=== PATIENT | female | born 1970 | race Caucasian/White ===

== ENCOUNTER 2016-11-13 10:07 | Observation (INO) | payer BC, OTHER ==
[2016-11-13] MEDS ORDERED: ONDANSETRON 4 MG TAB.RAPDIS PO ONE (10:30)
[2016-11-13] MEDS ORDERED: OXYCODONE-ACETAMINOPHEN 5-325 MG TABLET PO ONE (10:30)
[2016-11-13] MEDS ORDERED: NORMAL SALINE 1000 ML 1,000 ML IV ONE (10:31)
--- NOTE | 2016-11-13 10:32 | ER Document Report ---
ED Medical Screen (RME) - General Chief Complaint: Abdominal Pain Stated Complaint: CHEST/SIDE DISCOMFORT Time Seen by Provider: 11/13/16 10:28 Mode of Arrival: Ambulatory Information source: Patient Notes: 46-year-old female presents to ED for right-sided upper abdominal pain right flank pain and lower chest pain. She has a history of chronic constipation but had a last bowel movement yesterday she said the pain started yesterday with stool sometimes cramping sometimes sharp with nausea worse after eating. History is of bilateral tubal ligation.. I have greeted and performed a rapid initial assessment of this patient. A comprehensive ED assessment and evaluation of the patient, analysis of test results and completion of medical decision making process will be conducted by an additional ED providers. TRAVEL OUTSIDE OF THE [place] IN LAST 30 DAYS: No - Related Data Allergies/Adverse Reactions: Sulfa (Sulfonamide Antibiotics) Allergy (Verified 11/13/16 10:12) Past Medical History Renal/ Medical History: Denies: Hx Peritoneal Dialysis Physical Exam - Vital signs Vitals: Temp Pulse Resp BP Pulse Ox 97.4 F 68 21 H 119/84 98 11/13/16 10:12 11/13/16 10:12 11/13/16 10:12 11/13/16 10:12 11/13/16 10:12 Course - Vital Signs Vital signs: Temp Pulse Resp BP Pulse Ox 97.4 F 68 21 H 119/84 98 11/13/16 10:12 11/13/16 10:12 11/13/16 10:12 11/13/16 10:12 11/13/16 10:12
[2016-11-13 11:32] LABS: ABSOLUTE LYMPHOCYTES (AUTO) 1.8 10^3/uL (0.5-4.7); ABSOLUTE MONOCYTES (AUTO) 0.5 10^3/uL (0.1-1.4); ABSOLUTE NEUT (AUTO) 1.5 10^3/uL (1.7-8.2); BASOPHILS % (AUTO) 0.4 % (0-2); HEMATOCRIT 39.1 % (36.0-47.0); HEMOGLOBIN 12.9 g/dL (12.0-15.5); HGB HCT DIFFERENCE -0.4; LYMPHOCYTES % (AUTO) 46.9 % (13-45); MEAN CORPUSCULAR HEMOGLOBIN 30.1 pg (27.0-33.4); MEAN CORPUSCULAR VOLUME 91 fl (80-97); MONOCYTES % (AUTO) 12.6 % (3-13); RED BLOOD COUNT 4.28 10^6/uL (3.72-5.28); RED CELL DISTRIBUTION WIDTH 13.3 % (11.5-14.0); SEGMENTED NEUTROPHILS % (AUTO) 40.1 % (42-78); WHITE BLOOD COUNT 3.8 10^3/uL (4.0-10.5)
--- NOTE | 2016-11-13 11:37 | RADIOLOGY REPORT (SQ) ---
EXAM DESCRIPTION: CHEST PA/LAT COMPLETED DATE/TIME: 11/13/2016 11:21 am REASON FOR STUDY: right upper quad and chest pain COMPARISON: None. EXAM PARAMETERS: NUMBER OF VIEWS: two views TECHNIQUE: Digital Frontal and Lateral radiographic views of the chest acquired. RADIATION DOSE: NA LIMITATIONS: none FINDINGS: LUNGS AND PLEURA: No opacities, masses or pneumothorax. No pleural effusion. MEDIASTINUM AND HILAR STRUCTURES: No masses or contour abnormalities. HEART AND VASCULAR STRUCTURES: Heart normal size. No evidence for failure. BONES: No acute findings. HARDWARE: None in the chest. OTHER: No other significant finding. IMPRESSION: NO SIGNIFICANT RADIOGRAPHIC FINDING IN THE CHEST. TECHNICAL DOCUMENTATION: JOB ID: [id number] [employer]- All Rights Reserved
[2016-11-13 11:46] LABS: APPEARANCE,URINE CLEAR; BILIRUBIN,URINE NEGATIVE (NEGATIVE); GLUCOSE, URINE NEGATIVE (NEGATIVE); KETONES,URINE NEGATIVE (NEGATIVE); LEUKOCYTE ESTERASE,URINE NEGATIVE (NEGATIVE); NITRITE,URINE NEGATIVE (NEGATIVE); PROTEIN,URINE NEGATIVE (NEGATIVE); URINE SPECIFIC GRAVITY 1.006; UROBILINOGEN,URINE NEGATIVE mg/dL (<2.0)
[2016-11-13 11:59] LABS: ALANINE AMINOTRANSFERASE 43 U/L (9-52); ALBUMIN 4.3 g/dL (3.5-5.0); ALKALINE PHOSPHATASE 51 U/L (38-126); ANION GAP 11 (5-19); ASPARTATE AMINO TRANSFERASE 45 U/L (14-36); BILIRUBIN,DIRECT 0.3 mg/dL (0.0-0.4); BILIRUBIN,TOTAL 0.6 mg/dL (0.2-1.3); BLOOD UREA NITROGEN 14 mg/dL (7-20); CALCIUM 9.5 mg/dL (8.4-10.2); CARBON DIOXIDE 25 mmol/L (22-30); CHLORIDE 106 mmol/L (98-107); CREATINE KINASE 224 U/L (30-135); GLUCOSE 84 mg/dL (75-110); LIPASE 258.6 U/L (23-300); POTASSIUM 4.5 mmol/L (3.6-5.0); SODIUM 142.3 mmol/L (137-145); TOTAL PROTEIN 9.9 g/dL (6.3-8.2)
[2016-11-13 12:09] LABS: CREATINE KINASE MB 4.34 ng/mL (<4.55)
[2016-11-13 12:11] LABS: TROPONIN I < 0.012 ng/mL
--- NOTE | 2016-11-13 12:53 | ER Document Report ---
ED GI/ - General Chief Complaint: Abdominal Pain Stated Complaint: CHEST/SIDE DISCOMFORT Time Seen by Provider: 11/13/16 10:28 Mode of Arrival: Ambulatory Information source: Patient TRAVEL OUTSIDE OF THE [place] IN LAST 30 DAYS: No - HPI Patient complains to provider of: Abdominal pain Onset: Last week Timing/Duration: Worse Quality of pain: Sharp, Stabbing Severity at maximum: Moderate Severity in ED: Moderate Pain Level: 3 Location: RUQ Associated symptoms: Nausea Exacerbated by: Food Relieved by: Denies Similar symptoms previously: Yes Recently seen / treated by doctor: No Notes: 11/13/16 12:52 Patient is a 46-year-old female who presents to the emergency room complaining of right upper quadrant pain with nausea that has been going on and worsening over the past week, it is worse after eating, pain is sharp and stabbing with a sensation of a tight vice around the top of her abdomen, she denies any vomiting or diarrhea, no fever or chills, no urinary symptoms, no history of similar symptoms previously, has a history of bilateral tubal ligation in 2006, 420 laparotomy in 1997 which showed endometriosis - Related Data Allergies/Adverse Reactions: Sulfa (Sulfonamide Antibiotics) Allergy (Verified 11/13/16 10:12) Home Medications: Current Home Medications Cyclobenzaprine HCl [Flexeril 5 mg Tablet] 5 mg PO Q8HP PRN 11/13/16 [History] Linaclotide [Linzess] 290 mcg PO ACBRKFST 11/13/16 [History] Metformin HCl [Glucophage] 500 mg PO DAILY 11/13/16 [History] Past Medical History - General Information source: Patient - Social History Smoking Status: Former Smoker Family History: Reviewed & Not Pertinent Patient has suicidal ideation: No Patient has homicidal ideation: No Renal/ Medical History: Denies: Hx Peritoneal Dialysis Review of Systems - Review of Systems Constitutional: No symptoms reported EENT: No symptoms reported Cardiovascular: No symptoms reported Respiratory: No symptoms reported Gastrointestinal: See HPI Genitourinary: No symptoms reported Female Genitourinary: No symptoms reported Musculoskeletal: No symptoms reported Skin: No symptoms reported Hematologic/Lymphatic: No symptoms reported Neurological/Psychological: No symptoms reported -: Yes All other systems reviewed and negative Physical Exam - Vital signs Vitals: Temp Pulse Resp BP Pulse Ox 97.4 F 68 21 H 119/84 98 11/13/16 10:12 11/13/16 10:12 11/13/16 10:12 11/13/16 10:12 11/13/16 10:12 Interpretation: Normal - General General appearance: Appears well, Alert - HEENT Head: Normocephalic, Atraumatic Eyes: Normal Pupils: PERRL - Respiratory Respiratory status: No respiratory distress Chest status: Nontender Breath sounds: Normal Chest palpation: Normal - Cardiovascular Rhythm: Regular Heart sounds: Normal auscultation Murmur: No - Abdominal Inspection: Normal Distension: No distension Bowel sounds: Normal Tenderness: Tender - Right Upper quadrant Organomegaly: No organomegaly - Back Back: Normal, Nontender - Extremities General upper extremity: Normal inspection, Nontender, Normal color, Normal ROM , Normal temperature General lower extremity: Normal inspection, Nontender, Normal color, Normal ROM , Normal temperature, Normal weight bearing. No: Kip's sign - Neurological Neuro grossly intact: Yes Cognition: Normal Orientation: AAOx4 Tony Coma Scale Eye Opening: Spontaneous Tony Coma Scale Verbal: Oriented [place] Coma Scale Motor: Obeys Commands Tony Coma Scale Total: 15 Speech: Normal Motor strength normal: LUE, RUE, LLE, RLE Sensory: Normal - Psychological Associated symptoms: Normal affect, Normal mood - Skin Skin Temperature: Warm Skin Moisture: Dry Skin Color: Normal Course - Re-evaluation Re-evalutation: 11/13/16 13:26 It was discussed with the on-call surgeon, Dr. Santos who is on his way back to the OR to care for patient there, he will come back to see patient shortly and evaluate for possible admission and cholecystectomy 11/13/16 18:54 Patient imaging findings are unremarkable, however Dr. Santos will admit for observation for further evaluation and treatment - Vital Signs Vital signs: Temp Pulse Resp BP Pulse Ox 98.1 F 68 16 117/81 97 11/13/16 15:51 11/13/16 15:51 11/13/16 15:51 11/13/16 15:51 11/13/16 15:51 - Laboratory Result Diagrams: 11/13/16 11:10 11/13/16 11:10 Laboratory results interpreted by me: 11/13/16 11/13/16 11:10 11:10 WBC 3.8 L Seg Neutrophils % 40.1 L Lymphocytes % 46.9 H Absolute Neutrophils 1.5 L AST 45 H Creatine Kinase 224 H Total Protein 9.9 H - Diagnostic Test Radiology reviewed: Image reviewed, Reports reviewed Discharge - Discharge Clinical Impression: Gallbladder disease Condition: Stable Disposition: ADMITTED OBSERVATION Admitting Provider: Surgicalist Unit Admitted: Surgical Floor
[2016-11-13] MEDS ORDERED: NORMAL SALINE 1000 ML 1,000 ML IV PRN (13:26)
--- NOTE | 2016-11-13 13:28 | RADIOLOGY REPORT (SQ) ---
EXAM DESCRIPTION: U/S ABDOMEN LIMITED W/O DOP COMPLETED DATE/TIME: 11/13/2016 1:12 pm REASON FOR STUDY: right upper quad and chest pain COMPARISON: None. TECHNIQUE: Dynamic and static grayscale images acquired of the abdomen and recorded on PACS. Additio nal selected color Doppler and spectral images recorded. LIMITATIONS: None. FINDINGS: PANCREAS: No masses. Visualized pancreatic duct normal caliber. LIVER: No masses. Echotexture normal. LIVER VASCULATURE: Normal directional flow of the main portal vein and hepatic veins. GALLBLADDER: No stones. Normal wall thickness. No pericholecystic fluid. ULTRASOUND-DETECTED MILLS'S SIGN: Negative. INTRAHEPATIC DUCTS AND COMMON DUCT: CBD and intrahepatic ducts normal caliber. No filling defects. INFERIOR VENA CAVA: Normal flow. AORTA: No aneurysm. RIGHT KIDNEY: Normal size. Normal echogenicity. No solid or suspicious masses. No hydronephrosis. No calcifications. PERITONEAL AND RIGHT PLEURAL SPACE: No ascites or effusions. OTHER: No other significant findings. IMPRESSION: NORMAL RIGHT UPPER QUADRANT ULTRASOUND. TECHNICAL DOCUMENTATION: JOB ID: [id number]- All Rights Reserved
[2016-11-13] MEDS ORDERED: MORPHINE SULFATE 10 MG/ML INJ IV ONE (14:11)
--- NOTE | 2016-11-13 14:31 | EKG REPORT ---
SEVERITY:- OTHERWISE NORMAL ECG - SINUS BRADYCARDIA : Confirmed by: Tammy Henderson 13-Nov-2016 14:30:29
[2016-11-13] MEDS: NORMAL SALINE 1000 ML 1,000 ML IV PRN ×2 (14:37→21:28)
--- NOTE | 2016-11-13 17:11 | RADIOLOGY REPORT (SQ) ---
EXAM DESCRIPTION: CT ABD/PELVIS WITH IV ONLY COMPLETED DATE/TIME: 11/13/2016 4:53 pm REASON FOR STUDY: right sided pain COMPARISON: None. TECHNIQUE: CT scan of the abdomen and pelvis performed using helical scanning technique with dynamic intravenous contrast injection. No oral contrast. Images reviewed with lung, soft tissue, and bone windows. Reconstructed coronal and sagittal MPR images reviewed. Delayed images for evaluation of the urinary system also acquired. All images stored on PACS. All CT scanners at this facility use dose modulation, iterative reconstruction, and/or weight based d osing when appropriate to reduce radiation dose to as low as reasonably achievable (ALARA). [facility]: Dose Right [facility]: CareDose [facility]: Dose Right [facility]: Teradose 4D [facility]: ilustrum CONTRAST TYPE AND DOSE: 86mL Isovue 370- low osmolar. RENAL FUNCTION: Creatinine 0.7 BUN 14 RADIATION DOSE: 17.62mGy. LIMITATIONS: None. FINDINGS: LOWER CHEST: No significant findings. No nodules or infiltrates. LIVER: Normal size. No masses or dilated ducts. SPLEEN: Normal size. No focal lesions. PANCREAS: No masses. No significant calcifications. No adjacent inflammation or peripancreatic fluid collections. Pancreatic duct not dilated. GALLBLADDER: No identified stones by CT criteria. No inflammatory changes to suggest cholecystitis. ADRENAL GLANDS: No significant masses or asymmetry. RIGHT KIDNEY AND URETER: No solid masses. No significant calcifications. No hydronephrosis or hyd roureter. LEFT KIDNEY AND URETER: No solid masses. No significant calcifications. No hydronephrosis or hydr oureter. AORTA AND VESSELS: No aneurysm. No dissection. Renal arteries, SMA, celiac without stenosis. RETROPERITONEUM: No retroperitoneal adenopathy, hemorrhage or masses. BOWEL AND PERITONEAL CAVITY: No masses or inflammatory changes. No free fluid or peritoneal masses. APPENDIX: Normal. PELVIS: The uterus is normal for age. There is no adnexal mass or fluid collection. The urinary kyle dder is normal. ABDOMINAL WALL: No masses. No hernias. BONES: No significant or acute findings. OTHER: No other significant finding. IMPRESSION: No abnormality is seen in the abdomen or pelvis. There are no findings that explain the patient's symptoms. TECHNICAL DOCUMENTATION: JOB ID: [id number] Quality ID # [id number]: Final reports with documentation of one or more dose reduction techniques (e.g., Au tomated exposure control, adjustment of the mA and/or kV according to patient size, use of iterative reconstruction technique) 2010 [email or web address]- All Rights Reserved
--- NOTE | 2016-11-13 19:42 | PDOC H&P ---
History of Present Illness Admission Date/PCP: 11/13/16 15:37 History of Present Illness: JENNIFER MEJIAS is a 46 year old female Who presents to the emergency department via ground rescue complaining of abdominal pain for approximately 1 week worse last night, associated with postprandial right upper quadrant and subcostal discomfort radiating to her back. She was evaluated in the emergency department was found to have right upper quadrant tenderness. Laboratory profile was unremarkable. Gallbladder ultrasound was originally interpreted by the emergency room physician staff is showing gallstones. Surgery was consulted and the patient's history and physical exam findings were consistent with possible cholecystitis with cholelithiasis and she was tentatively set up to undergo interval laparoscopic cholecystectomy. Upon further review of her ultrasound by Dr. Cain with Dr. Sullivan, radiologist, the gallbladder was determined to not have sludge no pericholecystic fluid or gallbladder wall thickening. For this reason the plan for gallbladder removal was aborted. Because the patient was continued to have abdominal pain, CT scan of the abdomen and pelvis was obtained with IV contrast , which showed no intra-abdominal pathology. Discussion was held with the patient and her . They desired a more definitive explanation for the patient's abdominal pain so advised him admission for observation purposes, and the acquisition of a HIDA scan. Past Medical History Endocrine History Note: Diabetes GI Medical History: Reports: Other - His history of irritable bowel syndrome, managed by Dr. Baugh, idiopathic constipation for which she is taking LINZESS Past Surgical History Past Surgical History: Reports: Other - O2 ligation, exploratory laparoscopy and sinus surgery. Social History Smoking Status: Former Smoker Frequency of Alcohol Use: Occasional - Advance Directive Resuscitation Status: Full Code Family History Family History: Reviewed & Not Pertinent Parental Family History Reviewed: Yes Children Family History Reviewed: Yes Sibling(s) Family History Reviewed.: Yes Medication/Allergy Home Medications: Cyclobenzaprine HCl [Flexeril 5 mg Tablet] 5 mg PO Q8HP PRN 11/13/16 Linaclotide [Linzess] 290 mcg PO ACBRKFST 11/13/16 Metformin HCl [Glucophage] 500 mg PO DAILY 11/13/16 Allergies/Adverse Reactions: Sulfa (Sulfonamide Antibiotics) Allergy (Verified 11/13/16 10:12) Review of Systems Constitutional: ABSENT: chills, fever(s), headache(s), weight gain, weight loss Eyes: ABSENT: visual disturbances Ears: ABSENT: hearing changes Cardiovascular: ABSENT: chest pain, dyspnea on exertion, edema, orthropnea, palpitations Respiratory: ABSENT: cough, hemoptysis Gastrointestinal: PRESENT: as per HPI Genitourinary: ABSENT: dysuria, hematuria Musculoskeletal: PRESENT: back pain Integumentary: ABSENT: rash, wounds Endocrine: ABSENT: cold intolerance, heat intolerance, polydipsia, polyuria Physical Exam Vital Signs: Temp Pulse Resp BP Pulse Ox 98.1 F 68 16 129/90 H 98 11/13/16 15:51 11/13/16 15:51 11/13/16 15:51 11/13/16 19:31 11/13/16 19:31 General appearance: PRESENT: no acute distress Head exam: PRESENT: normocephalic Eye exam: PRESENT: EOMI Ear exam: PRESENT: normal external ear exam Mouth exam: PRESENT: dry mucosa Neck exam: PRESENT: full ROM Respiratory exam: PRESENT: clear to auscultation milka Cardiovascular exam: PRESENT: RRR Pulses: PRESENT: normal carotid pulses, normal radial pulses, normal femoral pulses GI/Abdominal exam: PRESENT: other - Nondistended, no peritoneal signs, no rigidity. Only mild right upper quadrant tenderness. Rectal exam: PRESENT: deferred Extremities exam: PRESENT: full ROM Neurological exam: PRESENT: alert, awake, oriented to person, oriented to place Psychiatric exam: PRESENT: appropriate affect Results Impressions: Abdomen Ultrasound 11/13/16 10:29 IMPRESSION: NORMAL RIGHT UPPER QUADRANT ULTRASOUND. Chest X-Ray 11/13/16 10:29 IMPRESSION: NO SIGNIFICANT RADIOGRAPHIC FINDING IN THE CHEST. Abdomen/Pelvis CT 11/13/16 16:33 IMPRESSION: No abnormality is seen in the abdomen or pelvis. There are no findings that explain the patient's symptoms. Assessment & Plan - Diagnosis (1) Abdominal pain Is this a current diagnosis for this admission?: YesPlan: . I have explained to the patient and her that we do not have a definitive diagnosis of gallbladder disease, and therefore interval cholecystectomy should be suspended, at least temporarily 2. Patient and are anxious to get a diagnosis. I told them that I would let her have clear liquids, reassess her abdominal pain, and keep her n.p.o. after midnight. We will then obtain a HIDA scan with ejection fraction to determine whether she is suffering from chronic biliary dyskinesia. 3. I also explained that the CT scan of the abdomen was obtained with no oral contrast, and that study could be repeated with contrast for higher sensitivity of detecting intra-abdominal pathology. (2) Irritable bowel syndrome (IBS) Is this a current diagnosis for this admission?: Yes (3) Chronic idiopathic constipation Is this a current diagnosis for this admission?: Yes (4) Type 2 diabetes mellitus Qualifiers: Diabetes mellitus complication status: without complication Is this a current diagnosis for this admission?: Yes (5) GERD (gastroesophageal reflux disease) Is this a current diagnosis for this admission?: Yes - Time Time Spent: 30 to 50 Minutes Critical Time spent with patient: 15-24 minutes Anticipated discharge: Home - Inpatient Certification Medical Necessity: Failure to Improve With Outpatient Therapy, Need For IV Fluids
[2016-11-13] MEDS ORDERED: KETOROLAC TROMETHAMINE INJ/PF 30 MG/1 ML SDV IV PRN (21:54)
[2016-11-14] MEDS: NORMAL SALINE 1000 ML 1,000 ML IV PRN ×3 (04:04→23:34)
--- NOTE | 2016-11-14 10:14 | Physician Advisory Note ---
Physician Advisor ProgressNote .: Pursuant to the plan for Teddy Mclain, I have reviewed the medical record for this patient. Physician Advisor Statement: Nicely documented co-morbidities of DM-2 & constip-predom IBS in this pt w/ endometriosis & abd pain, nl VS, leukopenia, mildly elevated AST & CK, nl CT & U /S. Approp.ly made Outpt Obs given abd pain (a "symptom dx") with eval so far reassuring. If pt eval finds something requiring continued hospitalization beyond today, or pt's sx do not improve sufficiently for d/c today, or she develops new concerning clinical issues, please document these issues & what potential problems you are concerned for. Thanks! CK
--- NOTE | 2016-11-14 14:24 | RADIOLOGY REPORT (SQ) ---
EXAM DESCRIPTION: NM HIDA SCAN WITH CCK COMPLETED DATE/TIME: 11/14/2016 2:06 pm REASON FOR STUDY: r/o GB dysfx COMPARISON: CT abdomen pelvis 11/13/2016 Abdominal ultrasound 11/13/2016 RADIONUCLIDE AND DOSE: DOSAGE RADIONUCLIDE: 5.4 millicuries Tc99m Mebrofenin. DOSAGE CCK: 1.6 micrograms. DOSAGE MORPHINE: Not required. The route of agent administration: Intravenous TECHNIQUE: Serial imaging right upper quadrant up to 60 minutes following injection of radionuclide. CCK injected after gallbladder visualized. LIMITATIONS: None. FINDINGS: LIVER: Normal visualization without areas of photopenia. INTRAHEPATIC BILE DUCTS: No delay in visualization. COMMON BILE DUCT: Normal without dilatation. GALLBLADDER: Normal visualization. Calculated ejection fraction of 12%. Normal range is greater th an 35%. PHYSICAL RESPONSE: Patients presenting complaint was reproduced. OTHER: No other significant finding. IMPRESSION: No evidence of cystic duct or common duct obstruction. Depressed gallbladder ejection fraction. IV CCK reproduced the patient's symptoms. Biliary dyskines ia. TECHNICAL DOCUMENTATION: JOB ID: [id number]- All Rights Reserved
[2016-11-14] MEDS ORDERED: OXYCODONE-ACETAMINOPHEN 5-325 MG TABLET PO PRN (14:28)
[2016-11-14] MEDS ORDERED: GLUCAGON,HUMAN RECOMB 1 MG INJ SUBCUT PRN (14:28)
[2016-11-14] MEDS ORDERED: DEXTROSE 40% GEL 15 GM TUBE PO PRN ×2 (14:28)
[2016-11-14] MEDS ORDERED: DEXTROSE 50%-WATER 25 GM/50 ML DISP.SYRIN IV PRN ×2 (14:28)
--- NOTE | 2016-11-14 14:41 | PDOC PROGRESS REPORT ---
Subjective Progress Note for:: 11/14/16 Subjective:: Pt. is w/o c/o at this time. Physical Exam Vital Signs: Temp Pulse Resp BP Pulse Ox 98.4 F 73 16 114/77 97 11/14/16 12:00 11/14/16 12:00 11/14/16 12:00 11/14/16 12:00 11/14/16 12:00 Intake & Output 11/13/16 11/14/16 11/15/16 06:59 06:59 06:59 Intake Total 1406 Balance 1406 Weight 80.6 kg General appearance: PRESENT: no acute distress, cooperative Respiratory exam: PRESENT: clear to auscultation milka Cardiovascular exam: PRESENT: RRR GI/Abdominal exam: PRESENT: normal bowel sounds, soft. ABSENT: guarding, rebound, tenderness Results Impressions: Abdomen Ultrasound 11/13/16 10:29 IMPRESSION: NORMAL RIGHT UPPER QUADRANT ULTRASOUND. Chest X-Ray 11/13/16 10:29 IMPRESSION: NO SIGNIFICANT RADIOGRAPHIC FINDING IN THE CHEST. Abdomen/Pelvis CT 11/13/16 16:33 IMPRESSION: No abnormality is seen in the abdomen or pelvis. There are no findings that explain the patient's symptoms. Hepatobiliary Scan Nuclear Medicine 11/14/16 07:46 IMPRESSION: No evidence of cystic duct or common duct obstruction. Depressed gallbladder ejection fraction. IV CCK reproduced the patient's symptoms. Biliary dyskinesia. Assessment & Plan - Plan Summary Plan Summary: Patient will be scheduled for laparoscopic cholecystectomy tomorrow AM.
[2016-11-14] MEDS: HYDROMORPHONE HCL INJ/PF 2 MG/ML AMPULE IV PRN ×2 (14:44→19:45)
[2016-11-15] MEDS: HYDROMORPHONE HCL INJ/PF 2 MG/ML AMPULE IV PRN ×3 (04:01→16:55)
[2016-11-15] MEDS: NORMAL SALINE 1000 ML 1,000 ML IV PRN (07:11)
[2016-11-15] MEDS ORDERED: BUPIVACAINE HCL 0.5 % INJ/PF 30 ML SDV ONE (07:28)
[2016-11-15] MEDS ORDERED: ONDANSETRON HCL INJ/PF 4 MG/2 ML SDV ONE ×2 (08:25→13:33)
[2016-11-15] MEDS ORDERED: DEXAMETHASONE SOD PHOSPHATE INJ 4 MG/1 ML VIAL ONE (08:25)
[2016-11-15] MEDS ORDERED: NEOSTIGMINE METHYLSULFATE 10 MG/10 ML VIAL ONE (08:25)
[2016-11-15] MEDS ORDERED: GLYCOPYRROLATE INJ 0.4 MG/2 ML VIAL ONE (08:25)
[2016-11-15] MEDS ORDERED: ROCURONIUM BROMIDE INJ 50 MG/5 ML VIAL IV ONE (08:25)
[2016-11-15] MEDS ORDERED: CEFAZOLIN INJ 1 GM VIAL ONE (10:58)
[2016-11-15] MEDS ORDERED: HYDROMORPHONE HCL INJ/PF 2 MG/ML AMPULE ONE (11:11)
[2016-11-15] MEDS ORDERED: FENTANYL CITRATE INJ/PF 100 MCG/2 ML AMPUL ONE ×2 (11:11)
[2016-11-15] MEDS ORDERED: MIDAZOLAM 2 MG/2 ML INJ ONE (11:12)
[2016-11-15] MEDS ORDERED: ACETAMINOPHEN 100 ML IV ONE (11:12)
[2016-11-15] MEDS ORDERED: PROPOFOL INJ 200 MG/20 ML VIAL IV ONE (11:12)
[2016-11-15] MEDS ORDERED: DIPHENHYDRAMINE HCL 50 MG/ML VIAL IV PRN (12:21)
[2016-11-15] MEDS ORDERED: MORPHINE SULFATE 10 MG/ML INJ IV PRN (12:21)
[2016-11-15] MEDS ORDERED: FENTANYL CITRATE INJ/PF 100 MCG/2 ML AMPUL IV PRN ×3 (12:21)
[2016-11-15] MEDS ORDERED: ONDANSETRON HCL INJ/PF 4 MG/2 ML SDV IV PRN (13:00)
--- NOTE | 2016-11-15 13:11 | Operative Report ---
Operative Report DATE OF SURGERY: 11/15/16 PREOPERATIVE DIAGNOSIS: Gallbladder dyskinesia POSTOPERATIVE DIAGNOSIS: Same OPERATION: Laparoscopic cholecystectomy SURGEON: ENZO GOMEZ ANESTHESIA: GA TISSUE REMOVED OR ALTERED: Gallbladder and contents COMPLICATIONS: None ESTIMATED BLOOD LOSS: Negligible INTRAOPERATIVE FINDINGS: Mildly distended, dyskinetic gallbladder PROCEDURE: The patient was brought to the operating suite and placed in the supine position on the operating table. Monitoring devices were attached, IV sedation was administered, and this was followed by the induction of general endotracheal anesthesia. The patient's abdomen was prepped and draped in usual sterile manner, and then timeout was achieved. Once all concurred, local anesthesia was injected just below the umbilicus. An incision was then made through skin and subcutaneous tissue down to the linea alba. 2-0 Vicryl stay sutures were placed in the linea alba and an incision was made between the 2 stay sutures. We grasped the peritoneum and an incision was made to the peritoneum and the abdominal cavity was entered. Digital expiration was done to ensure that there were no viscera adherent to the anterior abdominal wall. We inserted a Epps trocar and secured with a 2-0 Vicryl stay sutures, began insufflation with CO2, and then inserted the laparoscopic camera and light source. We saw no evidence of any injuries or bleeding. We then placed the remaining 3 trochars in the usual anatomic positions, and then grasped the fundus of the gallbladder and retracted superiorly over the liver. We then inserted another grasper, and grasped the infundibulum of the gallbladder and retracted laterally opening up Calot's triangle. We isolated and skeletonized the cystic duct and cystic artery and hemoclipped both of them close to the gallbladder, and divided each between hemoclips, with laparoscopic scissor. We then dissected the gallbladder off the liver using a reticulating scissors and cautery, ensuring adequate hemostasis as we went along. Once the gallbladder was disconnected from the liver, placed the gallbladder in the Endobag and removed from the abdominal cavity. We checked for adequate hemostasis in the gallbladder bed, and after being satisfied, we placed 0 Vicryl tie at the upper abdominal trocar site using the Pepe-Morenita device. We then removed all trochars and decompressed the abdomen. The infraumbilical fascia was closed using 0 Vicryl continuous suture , and all skin incisions were closed using 4-0 Vicryl subcuticular closure. The patient tolerated procedure well, sponge and needle count was correct, and the patient was discharged to the PACU in stable condition. Dr. Gomez
[2016-11-15 20:19] VITALS: BP 118/86
--- NOTE | 2016-11-15 20:24 | DISCHARGE SUMMARY E ---
Discharge Summary NAME: JENNIFER MEJIAS : 1970 AGE: 46Y ADMITTED: 11/13/2016 DISCHARGED: 11/15/2016 DISCHARGE DIAGNOSIS: Status post laparoscopic cholecystectomy for gallbladder dyskinesia. HISTORY OF PRESENT ILLNESS AND HOSPITAL COURSE: This 46-year-old female presented to the Emergency Room with abdominal pain for 1 week which was worse last night. The patient had associated right upper quadrant pain that was postprandial with pain radiating to her back. The patient was found to have right upper quadrant tenderness, and ultrasound originally showed sludge but upon review was considered within normal limits. Overall, the patient's history and physical exam were consistent with cholecystitis with cholelithiasis. There was question as to whether this was gallbladder dyskinesia as the ultrasound was normal. The patient then underwent a HIDA scan with CCK stimulation which revealed a gallbladder dyskinesia with a 12% ejection fraction and reproduction of the pain. After discussion with the family, consent was obtained for laparoscopic cholecystectomy which the patient underwent on 11/15/2016 without complication. The patient's postoperative course was uneventful. She was started on regular diet shortly after the surgery, and the patient is now discharged home and is to be followed by Dr. Santos in 7-10 days. DICTATING PHYSICIAN: ENZO RODRÍGUEZ M.D. [id number] SILVIAY#: [id number] ID: [id number] JOB#: [id number] ACCT: [id number] cc:Mark CORRALES PA >
== END 2016-11-15 20:30 | disposition home or self-care (01) ==
LOC: ER 10:07 → EH 15:37 → INTOOBSV 15:37 → 2N 19:54
PROC: 0FT44ZZ Resection of Gallbladder, Percutaneous Endoscopic Approach (ICD-10-PCS; principal; 2016-11-15 11:00)
DX: K81.1 Chronic cholecystitis (principal); K82.8 Other specified diseases of gallbladder; K58.1 Irritable bowel syndrome with constipation; K59.04 Chronic idiopathic constipation; E11.9 Type 2 diabetes mellitus without complications; K21.9 Gastro-esophageal reflux disease without esophagitis; N80.9 Endometriosis, unspecified; Z79.899 Other long term (current) drug therapy; Z87.891 Personal history of nicotine dependence; Z79.84 Long term (current) use of oral hypoglycemic drugs; Z98.51 Tubal ligation status
CPT/HCPCS: 93005; 99285; 96374; 36415; 82553; 82550; 83690; 85025; 80053; 81001; 84484; 88304 ×2; 71020; 76705; 78227; 74177; 93010; 47562; A9537; J2250; J0690; J3490; J1100; S0119; J3010; J1885; J2270; J1170 ×2; J2405; J7030 ×3; J2704; J0131; Q9969; 790; J2805

== ENCOUNTER 2016-11-20 18:03 | Emergency (ER) | payer OTHER ==
[2016-11-20 18:40] LABS: ABSOLUTE LYMPHOCYTES (AUTO) 1.8 10^3/uL (0.5-4.7); ABSOLUTE MONOCYTES (AUTO) 0.6 10^3/uL (0.1-1.4); ABSOLUTE NEUT (AUTO) 3.2 10^3/uL (1.7-8.2); BASOPHILS % (AUTO) 0.3 % (0-2); HEMATOCRIT 39.9 % (36.0-47.0); HEMOGLOBIN 13.2 g/dL (12.0-15.5); HGB HCT DIFFERENCE -0.3; LYMPHOCYTES % (AUTO) 32.1 % (13-45); MEAN CORPUSCULAR HEMOGLOBIN 29.9 pg (27.0-33.4); MEAN CORPUSCULAR HGB CONC 33.1 g/dL (32.0-36.0); MEAN CORPUSCULAR VOLUME 90 fl (80-97); MONOCYTES % (AUTO) 10.3 % (3-13); RED BLOOD COUNT 4.41 10^6/uL (3.72-5.28); RED CELL DISTRIBUTION WIDTH 13.5 % (11.5-14.0); SEGMENTED NEUTROPHILS % (AUTO) 57.3 % (42-78); WHITE BLOOD COUNT 5.5 10^3/uL (4.0-10.5)
[2016-11-20 18:58] LABS: ALANINE AMINOTRANSFERASE 64 U/L (9-52); ALBUMIN 3.8 g/dL (3.5-5.0); ALKALINE PHOSPHATASE 74 U/L (38-126); ANION GAP 11 (5-19); ASPARTATE AMINO TRANSFERASE 46 U/L (14-36); BILIRUBIN,DIRECT 0.3 mg/dL (0.0-0.4); BILIRUBIN,TOTAL 0.4 mg/dL (0.2-1.3); BLOOD UREA NITROGEN 9 mg/dL (7-20); CALCIUM 9.3 mg/dL (8.4-10.2); CARBON DIOXIDE 26 mmol/L (22-30); CHLORIDE 104 mmol/L (98-107); CREATINE KINASE 148 U/L (30-135); CREATININE RESULT 0.69 mg/dL (0.52-1.25); GLUCOSE 89 mg/dL (75-110); POTASSIUM 3.9 mmol/L (3.6-5.0); SODIUM 141.1 mmol/L (137-145)
[2016-11-20 19:07] LABS: CREATINE KINASE MB 3.08 ng/mL (<4.55)
[2016-11-20 19:12] LABS: TROPONIN I < 0.012 ng/mL
--- NOTE | 2016-11-20 19:14 | ER Document Report ---
ED Cardiac - General Chief Complaint: Chest Pain Stated Complaint: CHEST PAIN Time Seen by Provider: 11/20/16 19:08 Notes: Patient is a 46-year-old female, past medical history cholecystectomy on 11/15, presents with worsening right upper quadrant abdominal pain and right lower chest pain today. She felt a squeezing sensation over her upper abdomen earlier today. She has had similar symptoms since the surgery, but was worried about this pain because of the intensity and the radiation into her left lower chest. She called the surgeon admissions counselor, Dr. Santos, and was told to the come to the ER for further evaluation. Patient denies current abdominal or chest pain, SOB, back pain, urinary symptoms, numbness, tingling, fevers, diarrhea, constipation or rash. TRAVEL OUTSIDE OF THE [place] IN LAST 30 DAYS: No - Related Data Allergies/Adverse Reactions: Sulfa (Sulfonamide Antibiotics) Allergy (Verified 11/13/16 10:12) Past Medical History - General Information source: Patient - Social History Smoking Status: Never Smoker Chew tobacco use (# tins/day): No Frequency of alcohol use: None Drug Abuse: None Family History: Reviewed & Not Pertinent Renal/ Medical History: Denies: Hx Peritoneal Dialysis Psychiatric Medical History: Denies: Hx Depression Past Surgical History: Reports: Hx Abdominal Surgery, Hx Cholecystectomy, Other - O2 ligation, exploratory laparoscopy and sinus surgery. Review of Systems - Review of Systems Notes: REVIEW OF SYSTEMS: CONSTITUTIONAL: -fevers, -chills EENT: -eye pain, -difficulty swallowing, -nasal congestion CARDIOVASCULAR: +chest pain, -syncope. RESPIRATORY: -cough, -SOB GASTROINTESTINAL: +upper abdominal pain, -nausea, -vomiting, -diarrhea GENITOURINARY: -dysuria, -hematuria MUSCULOSKELETAL: -back pain, -neck pain SKIN: -rash or skin lesions. HEMATOLOGIC: -easy bruising or bleeding. LYMPHATIC: -swollen, enlarged glands. NEUROLOGICAL: -altered mental status or loss of consciousness, -headache, - neurologic symptoms PSYCHIATRIC: -anxiety, -depression. ALL OTHER SYSTEMS REVIEWED AND NEGATIVE. Physical Exam - Vital signs Vitals: Pulse Ox 98 11/20/16 18:19 - Notes Notes: PHYSICAL EXAMINATION: GENERAL: Well-appearing, well-nourished and in no acute distress. HEAD: Atraumatic, normocephalic. EYES: Pupils equal round and reactive to light, extraocular movements intact, sclera anicteric, conjunctiva are normal. ENT: nares patent, oropharynx clear without exudates. Moist mucous membranes. NECK: Normal range of motion, supple without lymphadenopathy LUNGS: Breath sounds clear to auscultation bilaterally and equal. No wheezes rales or rhonchi. HEART: Regular rate and rhythm without murmurs ABDOMEN: Soft, nontender, normoactive bowel sounds. No guarding, no rebound. No masses appreciated. EXTREMITIES: Normal range of motion, no pitting or edema. No cyanosis. NEUROLOGICAL: Cranial nerves grossly intact. Normal speech, normal gait. Normal sensory and motor exams. PSYCH: Normal mood, normal affect. SKIN: Warm, Dry, normal turgor, no rashes or lesions noted. Course - Re-evaluation Re-evalutation: Pt appears well. No current abdominal or chest pain. Her EKG and troponin do not show active ischemia and chest x-ray is normal. HEART score 0. Symptoms are atypical for PE at this time without tachycardia, SOB or hypoxia. Rest of labs are unremarkable, with her LFTs similar to post surgery. Patient only has one Percocet left and is requesting a few more in case the pain develops tonight. Instructed her to follow-up with the surgeon and primary care physician for a recheck of her symptoms. - Vital Signs Vital signs: Temp Pulse Resp BP Pulse Ox 98.1 F 78 16 110/82 99 11/20/16 18:25 11/20/16 18:25 11/20/16 18:25 11/20/16 18:25 11/20/16 18:25 - Laboratory Result Diagrams: 11/20/16 18:25 11/20/16 18:25 Laboratory results interpreted by me: 11/20/16 18:25 AST 46 H ALT 64 H Creatine Kinase 148 H Total Protein 9.0 H - Diagnostic Test Radiology reviewed: Image reviewed, Reports reviewed Radiology results interpreted by me: CXR: NAD - EKG Interpretation by Me EKG shows normal: Sinus rhythm, Vill[place], Intervals, QRS Complexes, ST-T Waves Rate: Normal Discharge - Discharge Clinical Impression: Upper abdominal pain Chest pain Qualifiers: Chest pain type: unspecified Qualified Code(s): R07.9 - Chest pain, unspecified Condition: Stable Disposition: HOME, SELF-CARE Additional Instructions: ABDOMINAL PAIN: There are many causes of abdominal pain. Pain can mean a serious problem requiring surgery (such as appendicitis). It can also be an innocent problem that goes away on its own (such as a viral infection). Often, time must pass to determine the cause of pain. The physician does not feel that hospitalization is necessary, at present. Things may change within the next 24 hours. Call the doctor or come back for re- examination if any problems occur, such as: (1) Pain that becomes more severe, steady, or becomes concentrated in one specific area. Also, pain that is more severe with movement or coughing. (2) Vomiting that persists or becomes more frequent. (3) Blood in the vomitus, urine, or bowel movements. Blood in the stool may have a tarry or black appearance. (4) Shaking chills or fever greater than 100 degrees F. (5) The abdomen becomes more distended or swollen. (6) Bowel movements cease. (7) Failure to improve as expected. NORMAL EXAM AND WORKUP: At this time, your examination and workup show no significant abnormality. No significant abnormal physical findings are noted. All laboratory, EKG, and imaging (x-ray, CT scans, ultrasound) studies that were ordered show no significant abnormality. Although your examination and all studies that were ordered showed no significant abnormal finding, there are no examinations and no studies that are 100% accurate. There is always the possibility that some abnormality could exist and not be detected with physical examination or within the limits and capabilities of laboratory and other studies. You should return or follow up as you were instructed on your visit today for further evaluation if your symptoms do not resolve. ORAL NARCOTIC MEDICATION: You have been given a prescription for pain control. This medication is a narcotic. It's best taken with food, as nausea can result if taken on an empty stomach. Don't operate machinery or drive within six hours of taking this medication. Do not combine this medicine with alcohol, or with any medication which can cause sedation (such as cold tablets or sleeping pills) unless you get permission from the physician. Narcotics tend to cause constipation. If possible, drink plenty of fluids and eat a diet high in fiber and fruits. Please be aware that prescription narcotics also have the potential for abuse. People become addicted to these medications because of the general sense of wellbeing that they induce. This feeling along with a significant reduction in tension, anxiety, and aggression provides a stimulating seductive quality to these drugs. Once your pain is under control, we encourage you to discard your unused narcotics. FOLLOW-UP CARE: If you have been referred to a physician for follow-up care, call the physician s office for an appointment as you were instructed or within the next two days. If you experience worsening or a significant change in your symptoms, notify the physician immediately or return to the Emergency Department at any time for re-evaluation. Prescriptions: Oxycodone HCl/Acetaminophen [Percocet 5-325 mg Tablet] 1 - 2 tab PO Q4H PRN #12 tablet PRN Reason: Referrals: MICA SANTOS MD [ACTIVE STAFF] - Follow up as needed
--- NOTE | 2016-11-20 19:28 | RADIOLOGY REPORT (SQ) ---
EXAM DESCRIPTION: CHEST PA/LAT COMPLETED DATE/TIME: 11/20/2016 7:12 pm REASON FOR STUDY: chest pain COMPARISON: 11/13/2016 EXAM PARAMETERS: NUMBER OF VIEWS: two views TECHNIQUE: Digital Frontal and Lateral radiographic views of the chest acquired. RADIATION DOSE: NA LIMITATIONS: none FINDINGS: LUNGS AND PLEURA: No opacities, masses or pneumothorax. No pleural effusion. MEDIASTINUM AND HILAR STRUCTURES: No masses or contour abnormalities. HEART AND VASCULAR STRUCTURES: Heart normal size. No evidence for failure. BONES: No acute findings. HARDWARE: None in the chest. OTHER: No other significant finding. IMPRESSION: NO SIGNIFICANT RADIOGRAPHIC FINDING IN THE CHEST. TECHNICAL DOCUMENTATION: JOB ID: [id number] [employer]- All Rights Reserved
[2016-11-20 20:06] VITALS: BP 107/81
--- NOTE | 2016-11-21 00:18 | EKG REPORT ---
SEVERITY:- NORMAL ECG - SINUS RHYTHM : Confirmed by: Tammy Henderson 21-Nov-2016 00:17:51
== END 2016-11-20 20:06 | disposition home or self-care (01) ==
LOC: ER 18:03
DX: R07.9 Chest pain, unspecified (principal); R10.11 Right upper quadrant pain; Z90.49 Acquired absence of other specified parts of digestive tract; Z88.2 Allergy status to sulfonamides
CPT/HCPCS: 36415; 71020; 80053; 82550; 82553; 84484; 85025; 93005; 93010; 99285

== ENCOUNTER 2016-11-30 08:42 | Emergency (ER) | payer OTHER ==
[2016-11-30] MEDS ORDERED: HYDROMORPHONE HCL INJ/PF 2 MG/ML AMPULE IV ONE ×3 (09:03→12:01)
[2016-11-30] MEDS ORDERED: NORMAL SALINE 1000 ML 1,000 ML IV ONE (09:03)
[2016-11-30] MEDS ORDERED: METOCLOPRAMIDE HCL INJ/PF 10 MG/2 ML SDV IV ONE (09:03)
--- NOTE | 2016-11-30 09:08 | ER Document Report ---
ED GI/ - General Mode of Arrival: Medic Information source: Patient TRAVEL OUTSIDE OF THE [place] IN LAST 30 DAYS: No <BEKAH REYES - Last Filed: 11/30/16 10:03> <MARYSOL VAZQUEZ - Last Filed: 11/30/16 14:25> - General Chief Complaint: Abdominal Pain Stated Complaint: ABDOMINAL PAIN Time Seen by Provider: 11/30/16 08:48 Notes: Patient is a 46 year old female presenting to the emergency department via EMS for abdominal pain. Patient's pain was onset at 8:00 this morning while the patient was at work. Patient had a cholecystectomy on 11/13/16. Patient states she had a normal bowel movement this morning prior to the pain. Patient states she is moving her bowels well and her abdomen is distended today compared to yesterday. Patient was evaluated in the ED last week for the same; patient didn' t have the pain during her time in the ED at her last visit. Today patient's pain is waxing and waning and patient states it "comes in waves." Patient complains of nausea with her pain. The patient's episodes occur for about 5-10 minutes at a time and then the pain goes away for a short period of time. Patient received 4 mg IV zofran and 1 mg IV dilaudid with 200 mL bolus from EMS with no relief. Patient is not taking any pain medications. Patient has a history of IBS and diabetes mellitus. Patient has a follow up appointment today at 13:[address] Santos. Patient is allergic to sulfa. (BEKAH REYES) - Related Data Allergies/Adverse Reactions: Sulfa (Sulfonamide Antibiotics) Allergy (Verified 11/30/16 08:52) Past Medical History - General Information source: Patient - Social History Smoking Status: Never Smoker Cigarette use (# per day): No Frequency of alcohol use: None Drug Abuse: None Family History: None Endocrine Medical History: Reports: Hx Diabetes Mellitus Type 2 GI Medical History: Reports: Hx Irritable Bowel Past Surgical History: Reports: Hx Abdominal Surgery, Hx Cholecystectomy - , Other - O2 ligation, exploratory laparoscopy and sinus surgery. <BEKAH REYES - Last Filed: 11/30/16 10:03> Review of Systems - Review of Systems Constitutional: No symptoms reported EENT: No symptoms reported Cardiovascular: No symptoms reported Respiratory: No symptoms reported Gastrointestinal: No symptoms reported Genitourinary: No symptoms reported Female Genitourinary: No symptoms reported Musculoskeletal: No symptoms reported Skin: No symptoms reported Hematologic/Lymphatic: No symptoms reported Neurological/Psychological: No symptoms reported -: Yes All other systems reviewed and negative <BEKAH REYES - Last Filed: 11/30/16 10:03> Physical Exam - General General appearance: Alert, Other - appears uncomfortable, distraught In distress: Mild - HEENT Head: Normocephalic, Atraumatic Eyes: Normal Pupils: PERRL Mucous membranes: Moist - Respiratory Respiratory status: No respiratory distress Chest status: Nontender Breath sounds: Normal Chest palpation: Normal - Cardiovascular Rhythm: Regular Heart sounds: Normal auscultation Murmur: No - Abdominal Inspection: Fresh incision - well healing laparoscopic surgical incision Distension: No distension Bowel sounds: Normal Tenderness: Tender - RLQ and RUQ tenderness with palpation Organomegaly: No organomegaly - Back Back: Normal, Nontender - Extremities General upper extremity: Normal inspection, Normal ROM, Normal strength General lower extremity: Normal inspection, Normal ROM, Normal strength - Neurological Neuro grossly intact: Yes Cognition: Normal Orientation: AAOx4 Tony Coma Scale Eye Opening: Spontaneous Dubois Coma Scale Verbal: Oriented Tony Coma Scale Motor: Obeys Commands Tony Coma Scale Total: 15 Speech: Normal - Psychological Associated symptoms: Tearful - and distraught/emotional - Skin Skin Temperature: Warm Skin Moisture: Dry <BEKAH REYES - Last Filed: 11/30/16 10:03> <MARYSOL VAZQUEZ - Last Filed: 11/30/16 14:25> - Vital signs Vitals: Resp 22 H 11/30/16 08:45 Course - Laboratory Result Diagrams: 11/30/16 09:25 11/30/16 09:25 <BEKAH REYES - Last Filed: 11/30/16 10:03> - Laboratory Result Diagrams: 11/30/16 09:25 11/30/16 09:25 - Diagnostic Test Radiology reviewed: Image reviewed, Reports reviewed - Nonobstructive bowel gas pattern, moderate amount of stool in the ascending colon, a few air-fluid levels in the nondistended colon and small bowel. <MARYSOL VAZQUEZ - Last Filed: 11/30/16 14:25> - Re-evaluation Re-evalutation: 11/30/16 14:21 In reviewing the possible causes of her abdominal discomfort, the patient admits that she had decreased her Linzess from once daily to every other day after her surgery. Lab work, essentially normal x-rays and CT scans, and colicky type abdominal pain, is most likely this is irritable bowel syndrome pain. (MARYSOL VAZQUEZ) - Vital Signs Vital signs: Temp Pulse Resp BP Pulse Ox 97.4 F 81 18 112/77 98 11/30/16 12:41 11/30/16 12:41 11/30/16 12:41 11/30/16 12:41 11/30/16 12:41 - Laboratory Laboratory results interpreted by me: 11/30/16 09:25 Carbon Dioxide 21 L AST 45 H Total Protein 10.2 H Discharge <BEKAH REYES - Last Filed: 11/30/16 10:03> <MARYSOL VAZQUEZ - Last Filed: 11/30/16 14:25> - Discharge Clinical Impression: Abdominal pain Qualifiers: Abdominal location: unspecified location Qualified Code(s): R10.9 - Unspecified abdominal pain Irritable bowel syndrome Qualifiers: Irritable bowel syndrome type: unspecified Qualified Code(s): K58.9 - Irritable bowel syndrome without diarrhea Condition: Stable Disposition: HOME, SELF-CARE Additional Instructions: Abdominal Pain: There are many causes of abdominal pain. Pain can mean a serious problem requiring surgery (such as appendicitis). It can also be an innocent problem that goes away on its own (such as a viral infection). Often, time must pass to determine the cause of pain. The physician does not feel that hospitalization is necessary, at present. Things may change within the next 24 hours. Call the doctor or come back for re- examination if any problems occur, such as: (1) Pain that becomes more severe, steady, or becomes concentrated in one specific area. Also, pain that is more severe with movement or coughing. (2) Vomiting that persists or becomes more frequent. (3) Blood in the vomitus, urine, or bowel movements. Blood in the stool may have a tarry or black appearance. (4) Shaking chills or fever greater than 100 degrees F. (5) The abdomen becomes more distended or swollen. (6) Bowel movements cease. (7) Failure to improve as expected. Irritable Bowel Syndrome: The cause of irritable bowel syndrome is unknown. Although often called "colitis", it is not an infection or inflammatory condition. Symptoms vary, but can include periodic abdominal cramping, migratory abdominal pains, diarrhea, or constipation. Commonly, a few days of constipation is followed by loose stools, then constipation begins again. There is no specific test for irritable bowel syndrome. The disease is diagnosed by history and exam findings, and by finding no evidence of other disease. Irritable bowel syndrome is treated by making the stool softer and bulkier. Regular meals, including plenty of soluble fiber, help. Avoid foods which provoke cramping. Stool "bulking agents," such as Metamucil, help. Expect occasional flare-ups. Call the physician if symptoms worsen, such as severe or constant abdominal pain, fever, blood in the stool, increasing constipation, or more frequent or severe diarrhea. Try taking weight of magnesia to help reduce the fecal load in the large intestine. Drink plenty of fluids. Take your Linzess every day. Follow-up with your single end sewer or primary care provider. RETURN TO THE EMERGENCY ROOM IF ANY NEW OR WORSENING SYMPTOMS. Prescriptions: Hydrocodone/Acetaminophen [Hydrocodon-Acetaminophen 5-325] 1 each PO Q4 PRN #15 tablet PRN Reason: For Pain Scribe Attestation: 11/30/16 14:25 I personally performed the services described in the documentation, reviewed and edited the documentation which was dictated to the scribe in my presence, and it accurately records my words and actions. (MARYSOL VAZQUEZ) Scribe Documentation - Scribe Written by Kacie:: Kacie Del Toro 11/30/16 9:33 acting as scribe for :: Radha <BEKAH REYES - Last Filed: 11/30/16 10:03>
--- NOTE | 2016-11-30 09:34 | RADIOLOGY REPORT (SQ) ---
EXAM DESCRIPTION: ABDOMEN 2 VIEWS COMPLETED DATE/TIME: 11/30/2016 9:15 am REASON FOR STUDY: 2 wks S/P choley, upper abd cramps COMPARISON: CT abdomen pelvis 11/13/2016 NUMBER OF VIEWS: Two views. TECHNIQUE: Supine and erect/decubitus radiographic images of the abdomen acquired. LIMITATIONS: None. FINDINGS: FREE AIR: None. No abnormal gas collections. LUNG BASES: Clear. BOWEL GAS PATTERN: Single air-filled right lower quadrant bowel loop possibly the cecum. Few air-flu id levels in nondistended colon and small bowel. Moderate stool in the ascending colon. Nonspecific bowel gas pattern. CALCIFICATIONS: No suspicious calcifications. SOFT TISSUES: Clips right upper quadrant post cholecystectomy. HARDWARE: None in the abdomen. BONES: No acute fracture. No worrisome bone lesions. OTHER: No other significant finding. IMPRESSION: Nonspecific nonobstructive bowel gas pattern. Surgical clips right upper quadrant post cholecystectomy TECHNICAL DOCUMENTATION: JOB ID: [id number] [employer]- All Rights Reserved
[2016-11-30 09:38] LABS: ABSOLUTE LYMPHOCYTES (AUTO) 1.4 10^3/uL (0.5-4.7); ABSOLUTE MONOCYTES (AUTO) 0.7 10^3/uL (0.1-1.4); ABSOLUTE NEUT (AUTO) 4.9 10^3/uL (1.7-8.2); BASOPHILS % (AUTO) 0.5 % (0-2); HEMATOCRIT 40.6 % (36.0-47.0); HEMOGLOBIN 13.2 g/dL (12.0-15.5); LYMPHOCYTES % (AUTO) 19.7 % (13-45); MEAN CORPUSCULAR HEMOGLOBIN 29.3 pg (27.0-33.4); MEAN CORPUSCULAR HGB CONC 32.5 g/dL (32.0-36.0); MEAN CORPUSCULAR VOLUME 90 fl (80-97); MONOCYTES % (AUTO) 9.4 % (3-13); RED BLOOD COUNT 4.51 10^6/uL (3.72-5.28); RED CELL DISTRIBUTION WIDTH 13.5 % (11.5-14.0); SEGMENTED NEUTROPHILS % (AUTO) 70.4 % (42-78)
[2016-11-30 09:54] LABS: ALBUMIN 4.4 g/dL (3.5-5.0); ANION GAP 15 (5-19); CARBON DIOXIDE 21 mmol/L (22-30); CHLORIDE 107 mmol/L (98-107); GLUCOSE 97 mg/dL (75-110); POTASSIUM 4.6 mmol/L (3.6-5.0); SODIUM 143.1 mmol/L (137-145); TOTAL PROTEIN 10.2 g/dL (6.3-8.2)
[2016-11-30 09:57] LABS: ALANINE AMINOTRANSFERASE 47 U/L (9-52); ALKALINE PHOSPHATASE 72 U/L (38-126); ASPARTATE AMINO TRANSFERASE 45 U/L (14-36); BILIRUBIN,DIRECT 0.4 mg/dL (0.0-0.4); BILIRUBIN,TOTAL 0.7 mg/dL (0.2-1.3); BLOOD UREA NITROGEN 17 mg/dL (7-20); CALCIUM 9.8 mg/dL (8.4-10.2); CREATININE RESULT 0.67 mg/dL (0.52-1.25); LIPASE 268.8 U/L (23-300)
[2016-11-30] MEDS ORDERED: ONDANSETRON HCL INJ/PF 4 MG/2 ML SDV IV ONE ×2 (10:35→12:02)
[2016-11-30 10:43] LABS: APPEARANCE,URINE CLEAR; BILIRUBIN,URINE NEGATIVE (NEGATIVE); GLUCOSE, URINE NEGATIVE (NEGATIVE); KETONES,URINE NEGATIVE (NEGATIVE); LEUKOCYTE ESTERASE,URINE NEGATIVE (NEGATIVE); NITRITE,URINE NEGATIVE (NEGATIVE); PROTEIN,URINE NEGATIVE (NEGATIVE); URINE SPECIFIC GRAVITY 1.016; UROBILINOGEN,URINE NEGATIVE mg/dL (<2.0)
[2016-11-30] MEDS ORDERED: DIPHENHYDRAMINE HCL 50 MG/ML VIAL IV ONE (12:02)
--- NOTE | 2016-11-30 13:41 | RADIOLOGY REPORT (SQ) ---
EXAM DESCRIPTION: CT ABD/PELVIS WITH IV ORAL COMPLETED DATE/TIME: 11/30/2016 1:08 pm REASON FOR STUDY: 2 wks S/P lap-choleyarsh R side abd pains COMPARISON: None. TECHNIQUE: CT scan of the abdomen and pelvis performed using helical scanning technique with dynamic intravenous contrast injection. Oral contrast. Images reviewed with lung, soft tissue, and bone win dows. Reconstructed coronal and sagittal MPR images reviewed. Delayed images for evaluation of the ur inary system also acquired. All images stored on PACS. All CT scanners at this facility use dose modulation, iterative reconstruction, and/or weight based d osing when appropriate to reduce radiation dose to as low as reasonably achievable (ALARA). [facility]: Dose Right [facility]: CareDose [facility]: Dose Right [facility]: Teradose 4D [facility]: Taptu CONTRAST TYPE AND DOSE: contrast/concentration: Isovue 370.00 mg/ml; Total Contrast Delivered: 83.0 ml; Total Saline Delivered: 68.0 ml RENAL FUNCTION: Creatinine 0.7 BUN 17 RADIATION DOSE: Up-to-date CT equipment and radiation dose reduction techniques were employed. CTDIv ol: 8.8 - 12.6 mGy. DLP: 1166 mGy-cm.. LIMITATIONS: None. FINDINGS: LOWER CHEST: No significant findings. No nodules or infiltrates. LIVER: Normal size. No masses or dilated ducts. SPLEEN: Normal size. No focal lesions. PANCREAS: No masses. No significant calcifications. No adjacent inflammation or peripancreatic fluid collections. Pancreatic duct not dilated. GALLBLADDER: Surgically absent. ADRENAL GLANDS: No significant masses or asymmetry. RIGHT KIDNEY AND URETER: No solid masses. No significant calcifications. No hydronephrosis or hyd roureter. LEFT KIDNEY AND URETER: No solid masses. No significant calcifications. No hydronephrosis or hydr oureter. AORTA AND VESSELS: No aneurysm. No dissection. Renal arteries, SMA, celiac without stenosis. RETROPERITONEUM: No retroperitoneal adenopathy, hemorrhage or masses. BOWEL AND PERITONEAL CAVITY: Occasional sigmoid diverticula are present with no acute inflammatory ch anges. APPENDIX: Normal. PELVIS: The urinary bladder is normal. The uterus is normal for age. There is no adnexal mass or fl uid collection. ABDOMINAL WALL: No masses. No hernias. BONES: No significant or acute findings. OTHER: No other significant finding. IMPRESSION: There is mild diverticulosis coli with no acute inflammatory changes. No other abnormal ity is seen. TECHNICAL DOCUMENTATION: JOB ID: [id number] Quality ID # [id number]: Final reports with documentation of one or more dose reduction techniques (e.g., Au tomated exposure control, adjustment of the mA and/or kV according to patient size, use of iterative reconstruction technique) 2010 [employer]- All Rights Reserved
[2016-11-30 14:38] VITALS: BP 112/80
== END 2016-11-30 14:38 | disposition home or self-care (01) ==
LOC: ER 08:42
DX: K58.9 Irritable bowel syndrome, unspecified (principal); R10.9 Unspecified abdominal pain; R11.0 Nausea; E11.9 Type 2 diabetes mellitus without complications; Z88.2 Allergy status to sulfonamides; Z90.49 Acquired absence of other specified parts of digestive tract
CPT/HCPCS: 96376; 99285; 96361; 96374; 96375; 36415; 83690; 85025; 80053; 81001; 74020; 74177; J1200; J2765; J1170; J2405; J7030